=== PATIENT | male | born 1945 | race Caucasian/White ===

== ENCOUNTER 2021-04-14 15:08 | Observation (INO) | payer MEDICARE, OTHER ==
--- OUTSIDE RECORDS SUMMARY | 2021-04-14 15:11 | XMS REPORT | Continuity of Care Document ---
:1945 Author Organization [facility] t Address [address] [place] [address] Dr. Huffman [address] [place] [id number] Care Team Providers Name Role Phone Derrick LOERA Attending Clinician Unavailable Derrick LOERA Admitting Clinician Unavailable Payers Payer Name Policy Type Policy Number Effective Date Expiration Date Jerzy TINAJERO/JUNI [id number] 2019 MEDICARE ADVANTAGE 00:00:00 Problems This patient has no known problems. Allergies, Adverse Reactions, Alerts Allergy Allergy Status Severity Reaction(s) Onset Inactive Treating Comm ents Source Name Type Date Date Clinician NO KNOWN Drug Active [facility] Medications This patient has no known medications. Procedures This patient has no known procedures. Encounters Start End Encounter Admission Attending Care Care Encounter Source Date/Time Date/Time Type Type Clinicians Facility Department ID 2021-01-21 Outpatient R BASILIO LOERA [place] [id number] 3 [facility] 10:34:48 [facility] Results This patient has no known results.
--- NOTE | 2021-04-14 15:36 | RAD REPORT ---
EXAM DESCRIPTION: CT - Ct Stroke Brain Wo Cont - 04/14/2021 3:29 pm CLINICAL HISTORY: r/o stroke Headache, drowsiness, CVA symptomology COMPARISON: No comparisons TECHNIQUE: All CT scans are performed using dose optimization technique as appropriate and may inclu de automated exposure control or mA/KV adjustment according to patient size. FINDINGS: No intracranial hemorrhage, hydrocephalus or extra-axial fluid collection.Moderate general ized brain atrophy is present with moderate periventricular and deep white matter chronic microvascul ar ischemic changes.No areas of brain edema or evidence of midline shift. Chronic right maxillary sinusitis. The calvarium is intact. IMPRESSION: No acute intracranial abnormality. The findings were discussed with Dr Jorge in the ER on 04/14/2021 at 2:28 p.m. by telephone.
[2021-04-14 16:19] LABS: Absolute Lymphocytes (CBC) 1.7 K/uL (0.7-4.9); Hematocrit 38.4 % (39.6-49.0); Lymphocytes % 17.4 % (15.3-44.8); MPV 6.4 fL (7.6-11.3); RBC Red Blood Cell Count 4.04 M/uL (4.33-5.43)
[2021-04-14 16:26] LABS: Protime INR 1.09
[2021-04-14] MEDS ORDERED: NA CHLORIDE 0.9% 2,000 ML ONE (16:29)
[2021-04-14 16:46] LABS: Albumin 2.5 g/dL (3.4-5.0); Bilirubin Direct 0.2 mg/dL (0-0.2); Bilirubin Total 0.5 mg/dL (0.2-1.0); CKMB Creatine Kinase MB 4.7 ng/mL (1.0-3.6); Protein, Total 7.4 g/dL (6.4-8.2); Troponin High Sensitivity 33.3 pg/mL (<58.9)
--- NOTE | 2021-04-14 17:15 | RAD REPORT ---
EXAM DESCRIPTION: RAD - Chest Single View - 04/14/2021 5:10 pm CLINICAL HISTORY: FEVER Chest pain. COMPARISON: No comparisons FINDINGS: Portable technique limits examination quality. Mild interstitial prominence is present, greater on the right. This is most compatible with underlyin g viral infection. The heart is normal in size. No displaced fractures.
[2021-04-14 17:56] LABS: Urine Blood Trace-intact (Negative); Urine Glucose Negative (Negative); Urine Protein 1+ (Negative); Urine Specific Gravity >=1.030 (1.005-1.030)
[2021-04-14] MEDS ORDERED: ACETAMINOPHEN 325 MG TABLET ONE (18:22)
--- NOTE | 2021-04-14 19:02 | ER ---
Nurse's Notes [facility] Name: Abbie Mendoza Age: 75 yrs Sex: Male : 1945 Arrival Date: 04/14/2021 Time: 15:15 Bed 26 Private MD: Diagnosis: Altered mental status, unspecified;Fever, unspecified;Weakness Presentation: 04/14 15:36 Chief complaint: Patient's son or daughter states: adult child: "this morning he was jd3 having problems walking and getting his feet coordinated as well as his general cognition. we had EMS come take a look at him and they said he was fine. he took a nap and now that he is awake he is worse.". Coronavirus screen: fever, Client presents with at least one sign or symptom that may indicate coronavirus-19. Standard/surgical mask placed on the client. Provider contacted for isolation considerations. Ebola Screen: No symptoms or risks identified at this time. Initial Sepsis Screen: Does the patient meet any 2 criteria? Temp <36.0*C (96.8*F)) or > 38.3*C (100.9*F). No. Patient's initial sepsis screen is negative. Does the patient have a suspected source of infection? No. Patient's initial sepsis screen is negative. Risk Assessment: Do you want to hurt yourself or someone else? Patient reports no desire to harm self or others. Onset of symptoms was April 14, 2021. 15:36 Method Of Arrival: Wheelchair j 15:36 Acuity: MADIHA 2 jd3 15:38 Note pt taken to CT for code stroke. pt A\\T\\O X 1. normal A\\T\\O X 4. paolo 3 - Immunization history:: Adult Immunizations unknown. - Social history:: Smoking status: unknown. Screenin:45 Abuse screen: Denies threats or abuse. Denies injuries from another. Nutritional ab2 screening: No deficits noted. Tuberculosis screening: No symptoms or risk factors identified. Fall Risk No fall in past 12 months (0 pts). No secondary diagnosis (0 pts). No IV (0 pts). Ambulatory Aid- None/Bed Rest/Nurse Assist (0 pts). Gait- Impaired (20 pts.). Mental Status- Overestimates/Forgets Limitations (15 pts.). Total Addison Fall Scale indicates Low Risk Score (25-44 pts). Fall prevention measures have been instituted. Side Rails Up X 2 As available Patient and Family Educated on Fall Prevention Program and strategies. Assessment: 15:39 General: Appears in no apparent distress. comfortable, Behavior is calm, cooperative, ab2 appropriate for age. Pain: Denies pain. Neuro: No deficits noted. Level of Consciousness is awake, alert, obeys commands, Oriented to person, Vision Therapist are equal bilaterally Weakness Speech is normal, Facial symmetry appears normal. Cardiovascular: No deficits noted. Denies chest pain, shortness of breath, Heart tones S1 S2 present Patient's skin is warm and dry. Respiratory: No deficits noted. Airway is patent Breath sounds are clear bilaterally. GI: No deficits noted. No signs and/or symptoms were reported involving the gastrointestinal system. Abdomen is flat, non-distended, Bowel sounds present X 4 quads. : No deficits noted. No signs and/or symptoms were reported regarding the genitourinary system. EENT: No deficits noted. No signs and/or symptoms were reported regarding the EENT system. Derm: No deficits noted. No signs and/or symptoms reported regarding the dermatologic system. Musculoskeletal: No deficits noted. No signs and/or symptoms reported regarding the musculoskeletal system. 21:50 Reassessment: Patient appears in no apparent distress at this time. No changes from ab2 previously documented assessment. Pt sleeping in room comfortably. 22:54 Reassessment: pt appears to be sleeping, eyes closed, resp unlabored, report called to lisa Lafleur RN for room 401. Vital Signs: 15:38 BP 140 / 53; Pulse 85; Resp 20 S; Temp 100.3(O); Pulse Ox 97% on R/A; Height 6 ft. 6 jd3 in. (198.12 cm) (R); Pain 0/10; 16:27 Weight 86.18 kg (R); ab2 16:30 BP 131 / 77; Pulse 81; Resp 16; Pulse Ox 98% on R/A; ab2 17:42 BP 116 / 56; Pulse 77; Resp 16; Pulse Ox 98% on R/A; ab2 18:25 BP 121 / 47; Pulse 77; Resp 16; Temp 100(O); Pulse Ox 97% on R/A; Pain 0/10; ab2 18:55 BP 116 / 57; Pulse 80; Resp 15; Pulse Ox 98% on R/A; Pain 0/10; ab2 20:00 BP 104 / 49; Pulse 68; Resp 16; Temp 99.2(O); Pulse Ox 97% ; Pain 0/10; ab2 21:00 BP 121 / 57; Pulse 80; Resp 16; Pulse Ox 97% on R/A; Pain 0/10; ab2 21:48 BP 106 / 54; Pulse 71; Resp 16; Pulse Ox 99% on R/A; Pain 0/10; ab2 16:27 Body Mass Index 21.96 (86.18 kg, 198.12 cm) ab2 NIH Stroke Scale Scores: 15:45 NIHSS Score: 6 ab2 ED Course: 15:15 Patient arrived in ED. iw 15:21 Mendez Jorge MD is Attending Physician. kdr 15:29 CT-STROKE BRAIN W/O CONTRAST CT In Process Unspecified. EDMS 15:37 Triage completed. jd3 15:38 Pete Cota is Primary Nurse. ab2 15:38 Arm band placed on. jd3 16:25 Inserted saline lock: 18 gauge in right antecubital area, using aseptic technique. ab2 Blood collected. 16:26 Amylase, Serum Sent. ab2 16:26 Basic Metabolic Panel Sent. ab2 16:26 Blood Culture Adult (2) Sent. ab2 16:26 CPK Sent. ab2 16:26 Ckmb Sent. ab2 16:26 LFT's Sent. ab2 16:26 Lactate Sent. ab2 16:26 Lipase Sent. ab2 16:26 Procalcitonin Sent. ab2 16:26 Protime (+inr) Sent. ab2 16:26 Ptt, Activated Sent. ab2 16:26 Troponin HS Sent. ab2 17:10 Chest Single View XRAY In Process Unspecified. EDMS 17:44 Patient has correct armband on for positive identification. Bed in low position. Call ab2 light in reach. Side rails up X2. Adult w/ patient. 17:45 No provider procedures requiring assistance completed. ab2 18:57 Nabil Blackmon DO is Hospitalizing Provider. kdr 19:06 CT Chest, Abdomen, Pelvis - W/Contrast In Process Unspecified. EDMS 22:54 Patient admitted, IV remains in place. bb Administered Medications: 16:35 Drug: NS 0.9% (30 ml/kg) 30 ml/kg Route: IV; Rate: bolus; Site: left antecubital; ab2 20:25 Follow up: Response: No adverse reaction; IV Status: Completed infusion ab2 18:25 Drug: Tylenol 650 mg Route: PO; ab2 20:25 Follow up: Response: No adverse reaction ab2 Outcome: 19:01 Decision to Hospitalize by Provider. kdr 22:53 Admitted to Tele accompanied by tech, via stretcher, room 401, with chart, Report bb called to Ciarra MACEDO 22:53 Condition: stable 23:01 Patient left the ED. lisa NIH Stroke Scale - NIH Stroke Score Date: 04/14/2021 Time: 15:45 Total Score = 6 1a. Level of Consciousness (LOC) - 0(Alert) 1b. Level of Consciousness (LOC) (Month \\T\\ Age) - 1(One) 1c. LOC Commands (Open \\T\\ Closes Eyes/Quality Control Representative) - 0(Both) 2. Best Gaze (Lateral Gaze Paresis) - 0(Normal) 3. Visual Field Loss - 0(No visual loss) 4. Facial Palsy - 0(Normal) 5a. Left Arm: Motor (10-second hold) - 0(No drift) 5b. Right Arm: Motor (10-second hold) - 0(No drift) 6a. Left Leg: Motor (5-second hold - always test supine) - 3(No effort against gravity) 6b. Right Leg: Motor (5-second hold - always test supine) - 0(No drift) 7. Limb Ataxia (finger/nose \\T\\ heel/garcia - test with eyes open) - 1(Present in one limb) 8. Sensory Loss (pinprick arms/legs/face) - 0(Normal) 9. Best Language: Aphasia (description/naming/reading) - 1(Mild to moderate aphasia) 10. Dysarthria (speech clarity - read or repeat words) - 0(Normal) 11. Extinction and Inattention (visual/tactile/auditory/spatial/personal) - 0(No abnormality) Initials: ab2 Signatures: Dispatcher [employer] EDMendez Mejía MD MD kdr Ballard, Brenda, RN RN bb Williams, Irene, RN RN iw Davies, Jonathon, RN RN jd3 Bleininger, Pete ab2 Corrections: (The following items were deleted from the chart) 19:50 16:26 UA MICROSCOPIC+U.LAB.ANTHONY drawn and sent. ab2 EDMS
--- NOTE | 2021-04-14 19:02 | EDPHYS ---
Physician Documentation [facility] Name: Abbie Mendoza Age: 75 yrs Sex: Male : 1945 Arrival Date: 04/14/2021 Time: 15:15 Bed 26 Private MD: ED Physician Mendez Jorge HPI: 04/14 18:57 This 75 yrs old Male presents to ER via Wheelchair with complaints of Mental status and kdr fever. 19:03 The patient presents with confusion, decreased mental status, decreased responsiveness, kdr disorientation, to place, to time. Onset: The symptoms/episode began/occurred gradually, 3 day(s) ago. Possible causes: CVA or TIA, sepsis, the patient has had a history of a fever. Associated signs and symptoms: Pertinent positives: confusion, weakness. Current symptoms: In the emergency department the patient's symptoms are unchanged from the initial presentation. Patient's baseline: Neuro: alert and fully oriented, Motor: no deficits, Ambulation: walks with assist only, Speech: normal for age. It is unknown whether or not the patient has had similar symptoms in the past. The patient has not recently seen a physician. - Immunization history:: Adult Immunizations unknown. - Social history:: Smoking status: unknown. ROS: 19:03 Constitutional: Negative for weight loss -has had low-grade fever and chills Eyes: kdr Negative for injury, pain, redness, and discharge, Neck: Negative for injury, pain, and swelling, Cardiovascular: Negative for chest pain, palpitations, and edema, Abdomen/GI: Negative for abdominal pain, nausea, vomiting, diarrhea, and constipation, Back: Negative for injury and pain, : Negative for injury, bleeding, discharge, and swelling, MS/Extremity: Negative for injury and deformity, Skin: Negative for injury, rash, and discoloration, Allergy/Immunology: Negative for hives, rash, and allergies, Endocrine: Negative for neck swelling, polydipsia, polyuria, polyphagia, and marked weight changes, Hematologic/Lymphatic: Negative for swollen nodes, abnormal bleeding, and unusual bruising. 19:03 Respiratory: Positive for cough, with no reported sputum. 19:03 Neuro: Positive for altered mental status, weakness. Exam: 19:03 Constitutional: This is a well developed, well nourished patient who is awake, poorly kdr alert, and in mild distress. Patient has shaking chills and rigors on the ambulance stretcher on arrival Head/Face: Normocephalic, atraumatic. Eyes: Pupils equal round and reactive to light, extra-ocular motions intact. Lids and lashes normal. Conjunctiva and sclera are non-icteric and not injected. Cornea within normal limits. Periorbital areas with no swelling, redness, or edema. Neck: Trachea midline, no thyromegaly or masses palpated, and no cervical lymphadenopathy. Supple, full range of motion without nuchal rigidity, or vertebral point tenderness. No Meningismus. Chest/axilla: Normal chest wall appearance and motion. Nontender with no deformity. No lesions are appreciated. Cardiovascular: Regular rate and rhythm with a normal S1 and S2. No gallops, murmurs, or rubs. Normal PMI, no JVD. No pulse deficits. Respiratory: Lungs have equal breath sounds bilaterally, clear to auscultation and percussion. No rales, rhonchi or wheezes noted. No increased work of breathing, no retractions or nasal flaring. Abdomen/GI: Soft, non-tender, with normal bowel sounds. No distension or tympany. No guarding or rebound. No evidence of tenderness throughout. Back: No spinal tenderness. No costovertebral tenderness. Full range of motion. Skin: Warm, dry with normal turgor. Normal color with no rashes, no lesions, and no evidence of cellulitis. MS/ Extremity: Pulses equal, no cyanosis. Neurovascular intact. Full, normal range of motion. Psych: Awake, alert, with orientation to person, place and time. Behavior, mood, and affect are within normal limits. 19:03 Neuro: Orientation: to person, Not oriented to place, time, situation, Mentation: slow to respond, confused, somnolent, Memory: no acute changes. Vital Signs: 15:38 BP 140 / 53; Pulse 85; Resp 20 S; Temp 100.3(O); Pulse Ox 97% on R/A; Height 6 ft. 6 jd3 in. (198.12 cm) (R); Pain 0/10; 16:27 Weight 86.18 kg (R); ab2 16:30 BP 131 / 77; Pulse 81; Resp 16; Pulse Ox 98% on R/A; ab2 17:42 BP 116 / 56; Pulse 77; Resp 16; Pulse Ox 98% on R/A; ab2 18:25 BP 121 / 47; Pulse 77; Resp 16; Temp 100(O); Pulse Ox 97% on R/A; Pain 0/10; ab2 18:55 BP 116 / 57; Pulse 80; Resp 15; Pulse Ox 98% on R/A; Pain 0/10; ab2 20:00 BP 104 / 49; Pulse 68; Resp 16; Temp 99.2(O); Pulse Ox 97% ; Pain 0/10; ab2 21:00 BP 121 / 57; Pulse 80; Resp 16; Pulse Ox 97% on R/A; Pain 0/10; ab2 21:48 BP 106 / 54; Pulse 71; Resp 16; Pulse Ox 99% on R/A; Pain 0/10; ab2 16:27 Body Mass Index 21.96 (86.18 kg, 198.12 cm) ab2 NIH Stroke Scale Scores: 15:45 NIHSS Score: 6 ab2 MDM: 19:01 Patient medically screened. kdr 19:03 Data reviewed: vital signs, nurses notes, lab test result(s), radiologic studies. kdr Counseling: I had a detailed discussion with the patient and/or guardian regarding: the historical points, exam findings, and any diagnostic results supporting the discharge/admit diagnosis, lab results, radiology results, the need for further work-up and treatment in the hospital. 04/14 15:45 Order name: Amylase, Serum; Complete Time: 18:04 04/14 15:45 Order name: Basic Metabolic Panel; Complete Time: 18:04 04/14 15:45 Order name: Blood Culture Adult (2) 04/14 15:45 Order name: CBC with Diff; Complete Time: 18:04 04/14 15:45 Order name: CPK; Complete Time: 18:04 04/14 15:45 Order name: Ckmb; Complete Time: 18:04 04/14 15:45 Order name: LFT's; Complete Time: 18:04 04/14 15:45 Order name: Lactate; Complete Time: 18:04 04/14 15:45 Order name: Lipase; Complete Time: 18:04 04/14 15:45 Order name: Procalcitonin; Complete Time: 18:04 04/14 15:45 Order name: Protime (+inr); Complete Time: 18:04 04/14 15:45 Order name: Ptt, Activated; Complete Time: 18:04 04/14 15:45 Order name: Troponin HS; Complete Time: 18:04 04/14 15:25 Order name: CT-STROKE BRAIN W/O CONTRAST CT; Complete Time: 18:04 04/14 15:45 Order name: Chest Single View XRAY; Complete Time: 18:04 04/14 17:56 Order name: Urine Dipstick-Ancillary; Complete Time: 18:04 [facility] 04/14 18:31 Order name: CT Chest, Abdomen, Pelvis - W/Contrast; Complete Time: 19:48 [facility] 04/14 18:32 Order name: COVID-19/FLU A+B (Document "Date of Onset" if Symptomatic) [facility] 04/14 18:32 Order name: COVID-19/FLU A+B [facility] 04/14 19:51 Order name: Physical Therapy Consult [facility] 04/14 19:51 Order name: Echo with Doppler [facility] 04/14 19:51 Order name: Urinalysis [facility] 04/14 19:51 Order name: Stroke Protocol [facility] 04/14 19:51 Order name: Carotid Artery Bilateral [facility] 04/14 15:45 Order name: Accucheck; Complete Time: 16:26 04/14 15:45 Order name: Cardiac monitoring; Complete Time: 16:26 04/14 15:45 Order name: EKG - Nurse/Tech; Complete Time: 16:26 04/14 15:45 Order name: IV Saline Lock - Large Bore; Complete Time: 16:25 04/14 15:45 Order name: Labs collected and sent; Complete Time: 16:25 04/14 15:45 Order name: O2 Per Protocol; Complete Time: 16:25 04/14 15:45 Order name: O2 Sat Monitoring; Complete Time: 16:26 04/14 15:45 Order name: Urine Dipstick-Ancillary (obtain specimen); Complete Time: 17:55 04/14 16:14 Order name: Labs - recollect needed: recollect 2nd set of blood cultures.; Complete bd Time: 16:24 04/14 19:51 Order name: Heart Healthy EDMS Administered Medications: 16:35 Drug: NS 0.9% (30 ml/kg) 30 ml/kg Route: IV; Rate: bolus; Site: left antecubital; ab2 20:25 Follow up: Response: No adverse reaction; IV Status: Completed infusion ab2 18:25 Drug: Tylenol 650 mg Route: PO; ab2 20:25 Follow up: Response: No adverse reaction ab2 Disposition Summary: 04/14/21 19:01 Hospitalization Ordered Hospitalization Status: Observation kdr Provider: Nabil Blackmon Location: Telemetry/MedSurg (observation) kdr Condition: Fair kdr Problem: new kdr Symptoms: are unchanged kdr Bed/Room Type: Standard kdr Room Assignment: 401(04/14/21 21:28) eb1 Diagnosis - Altered mental status, unspecified kdr - Fever, unspecified kdr - Weakness kdr Forms: - Medication Reconciliation Form kdr - SBAR form kdr NIH Stroke Scale - NIH Stroke Score Date: 04/14/2021 Time: 15:45 Total Score = 6 1a. Level of Consciousness (LOC) - 0(Alert) 1b. Level of Consciousness (LOC) (Month \\T\\ Age) - 1(One) 1c. LOC Commands (Open \\T\\ Closes Eyes/Uncrater) - 0(Both) 2. Best Gaze (Lateral Gaze Paresis) - 0(Normal) 3. Visual Field Loss - 0(No visual loss) 4. Facial Palsy - 0(Normal) 5a. Left Arm: Motor (10-second hold) - 0(No drift) 5b. Right Arm: Motor (10-second hold) - 0(No drift) 6a. Left Leg: Motor (5-second hold - always test supine) - 3(No effort against gravity) 6b. Right Leg: Motor (5-second hold - always test supine) - 0(No drift) 7. Limb Ataxia (finger/nose \\T\\ heel/garcia - test with eyes open) - 1(Present in one limb) 8. Sensory Loss (pinprick arms/legs/face) - 0(Normal) 9. Best Language: Aphasia (description/naming/reading) - 1(Mild to moderate aphasia) 10. Dysarthria (speech clarity - read or repeat words) - 0(Normal) 11. Extinction and Inattention (visual/tactile/auditory/spatial/personal) - 0(No abnormality) Initials: ab2 Signatures: Dispatcher [employer] EDMS Tanisha Hernandez Kevin, MD MD kdr Williams, Irene, RN RN iw Cristian Galvan, SEPTIC TANK SETTER-C SEPTIC TANK SETTER-Cla1 Manny Mcdaniel RN RN jd3 Lucita Bradley RN RN eb1 Pete Cota ab2 Corrections: (The following items were deleted from the chart) 19:50 15:46 UA MICROSCOPIC+U.LAB.BRZ ordered. EDMS EDMS 19:50 18:32 COVID-19/FLU A+B ordered. EDMS EDMS 19:50 19:37 AMMONIA+C.LAB.BRZ ordered. EDMS EDMS 19:50 19:37 ETHANOL+C.LAB.BRZ ordered. EDMS EDMS 19:51 19:37 URINE DRUG SCREEN+CHEM UR.LAB.BRZ ordered. EDMS EDMS 21:28 19:01 durga eb1
--- NOTE | 2021-04-14 19:20 | RAD REPORT ---
EXAM DESCRIPTION: CT - Chest Abdomen Pelvis W Cont - 04/14/2021 7:06 pm CLINICAL HISTORY: Chest and abdomen pain. Altered mental status COMPARISON: No comparisons TECHNIQUE: Approximately 100 mL nonionic IV contrast was administered to the patient. All CT scans are performed using dose optimization technique as appropriate and may include automated exposure control or mA/KV adjustment according to patient size. FINDINGS: Mild diffuse COPD is present.Poorly defined areas of nodularity are seen in the posterior right upper lobe most likely representing infection.No pleural or pericardial effusion.No intrathorac ic adenopathy. The liver, spleen, pancreas, adrenal glands and kidneys are within normal limits. 13 mm cyst is prese nt medial cortex left kidney. No bowel obstruction, free air, free fluid or abscess. Normal appendix. No pathologic lymphadenopath y in the abdomen or pelvis. There is asymmetric thickening of the rectal wall noted. Mild lumbar degenerative spondylosis. IMPRESSION: Areas of poorly defined nodularity posterior right upper lobe suspicious for infiltrate/ infection. Asymmetric thickening of the rectal wall is noted. Suggest followup nonemergent colonoscopy assessrenata nelson
[2021-04-14] MEDS ORDERED: LORazepam 2 MG/ML VIAL IV PRN (19:49)
[2021-04-14] MEDS ORDERED: ACETAMINOPHEN 500 MG TAB PO PRN (19:49)
[2021-04-14] MEDS ORDERED: ONDANSETRON 4 MG/2 ML VIAL IV PRN (19:49)
--- NOTE | 2021-04-14 19:50 | P.HP ---
Certification for Inpatient Patient admitted to: Inpatient With expected LOS: >2 Midnights Patient will require the following post-hospital care: None Practitioner: I am a practitioner with admitting privileges, knowledge of patient current condition, hospital course, and medical plan of care. Services: Services provided to patient in accordance with Admission requirements found in Title 42 Section 412.3 of the Code of Federal Regulations Patient History Date of Service: 04/14/21 Primary Care Provider: Dr. Emanuel Reason for admission: AMS, pneumonia History of Present Illness: 75-year-old male who reports no significant past medical history aside from tobacco abuse presents emergency department for altered mental status. Patient lives at home with his and stepdaughter who reported that ever since Monday he has had episodes of confusion, appears to not be understanding what they are saying, difficulty walking. Upon arrival to the emergency department patient was only oriented x1, very confused at time of my evaluation patient is oriented x3-4 but still obviously confused to some degree. Patient without any clear neurological deficits at this time moving all extremities with full strength. CT head without contrast negative for any acute findings CT chest abdomen pelvis shows areas of poorly defined nodularity posterior right upper lobe suspicious for infiltration or infection, asymmetrical thickening of the rectal wall noted suggest follow-up nonemergent colonoscopy. Labs were significant for white blood cell count 10.1 hemoglobin 13.2 hematocrit 38.4 sodium 134 amylase 262 procalcitonin 0.09 urine with trace leuk esterase microscopic pending. ED provider wishes to admit for altered mental status. - Past Medical/Surgical History -: COPD -: None Psychosocial/ Personal History: Patient lives at home with his - Family History Brother -: Stroke - Social History Smoking Status: Heavy Tobacco smoker (>10 cigarettes/day) Counseled patient to stop smoking for: less than 10 minutes Smoking therapy provided: Yes Alcohol use: No CD- Drugs: No Caffeine use: Yes Place of Residence: Home Review of Systems 10-point ROS is otherwise unremarkable Neurological: Confusion Physical Examination - Physical Exam General: Alert, In no apparent distress, Oriented x3 HEENT: Atraumatic, PERRLA, Mucous membr. moist/pink, EOMI, Sclerae nonicteric Neck: Supple, 2+ carotid pulse no bruit, No LAD, Without JVD or thyroid abnormality Respiratory: Clear to auscultation bilaterally, Normal air movement Cardiovascular: Regular rate/rhythm, Normal S1 S2 Capillary refill: <2 Seconds Gastrointestinal: Normal bowel sounds, No tenderness Musculoskeletal: No tenderness Integumentary: No rashes Neurological: Normal gait, Normal speech, Normal strength at 5/5 x4 extr, Normal tone, Normal affect, Other (Patient was some difficulty following commands) Lymphatics: No axilla or inguinal lymphadenopathy - Studies Laboratory Data (last 24 hrs) 04/14/21 16:00: PT 12.6 H, INR 1.09, APTT 35.5 04/14/21 16:00: WBC 10.10, Hgb 13.2 L, Hct 38.4 L, Plt Count 404 04/14/21 16:00: Sodium 134 L, Potassium 4.0, BUN 17, Creatinine 1.08, Glucose 86, Total Bilirubin 0.5, AST 49 H, ALT 31, Alkaline Phosphatase 95, Amylase 262 H*, Lipase 93 Assessment and Plan - Plan Assessment: AMSrule out CVA Suspected pneumonia posterior right upper lobe Incidental CT finding asymmetrical thickening of rectal wall Tobacco abuse Plan: AMSrule out CVA: Neurology consulted, MRI stroke protocol, carotid Doppler, echocardiogram ordered. Continue with aspirin, statin, folic acid. Altered mental status potentially related to infectious process with questionable pneumonia. Continue antibiotics Rocephin/Zithromax at this time. Suspected pneumonia posterior right upper lobe: Continue with Rocephin/Zithromax will obtain sputum culture. Pulmonology to be consulted. Patient smokes 3 packs/day risk for lung cancer. Incidental CT finding asymmetrical thickening of rectal wall: We will notify patient/family finding recommend nonemergent outpatient colonoscopy. Tobacco abuse: Counseled on need for tobacco cessation, NicoDerm patch provided. DVT PPX: Full Code status: Lovenox Discharge Plan: Home Plan to discharge in: 48 Hours - Advance Directives Does patient have a Living Will: No Does patient have a Durable POA for Healthcare: No - Code Status/Comfort Care Code Status Assessed: Yes (Full code) Critical Care: No Time Spent Managing Pts Care (In Minutes): 55
[2021-04-14] MEDS ORDERED: ATORVASTATIN 40 MG TAB PO SCH (21:00)
[2021-04-14 21:13] LABS: SARS-COV-2 RT PCR POSITIVE (NEGATIVE)
[2021-04-14 23:44] VITALS: O2SAT 99
--- NOTE | 2021-04-15 06:03 | P.PN ---
Subjective Date of Service: 04/15/21 Primary Care Provider: Dr. Emanuel Chief Complaint: AMS, pneumonia Subjective: Improving, Doing well Physical Examination - Vital Signs Temperature: 98.8 F Blood Pressure: 133/74 Pulse: 64 Respirations: 18 Pulse Ox (%): 95 - Studies Laboratory Data (last 24 hrs) 04/14/21 16:00: PT 12.6 H, INR 1.09, APTT 35.5 04/14/21 16:00: WBC 10.10, Hgb 13.2 L, Hct 38.4 L, Plt Count 404 04/14/21 16:00: Sodium 134 L, Potassium 4.0, BUN 17, Creatinine 1.08, Glucose 86, Total Bilirubin 0.5, AST 49 H, ALT 31, Alkaline Phosphatase 95, Amylase 262 H*, Lipase 93 Assessment & Plan Discharge Plan: Home Physician Review Additional Text: COVID: CT head: COMPARISON: No comparisons TECHNIQUE: All CT scans are performed using dose optimization technique as appropriate and may include automated exposure control or mA/KV adjustment according to patient size. FINDINGS: No intracranial hemorrhage, hydrocephalus or extra-axial fluid collection.Moderate generalized brain atrophy is present with moderate periventricular and deep white matter chronic microvascular ischemic changes.No areas of brain edema or evidence of midline shift. Chronic right maxillary sinusitis. The calvarium is intact. IMPRESSION: No acute intracranial abnormality. CXR: COMPARISON: No comparisons FINDINGS: Portable technique limits examination quality. Mild interstitial prominence is present, greater on the right. This is most compatible with underlying viral infection. The heart is normal in size. No displaced fractures CT chest: COMPARISON: No comparisons TECHNIQUE: Approximately 100 mL nonionic IV contrast was administered to the patient. All CT scans are performed using dose optimization technique as appropriate and may include automated exposure control or mA/KV adjustment according to patient size. FINDINGS: Mild diffuse COPD is present.Poorly defined areas of nodularity are seen in the posterior right upper lobe most likely representing infection.No pleural or pericardial effusion.No intrathoracic adenopathy. The liver, spleen, pancreas, adrenal glands and kidneys are within normal limits. 13 mm cyst is present medial cortex left kidney. No bowel obstruction, free air, free fluid or abscess. Normal appendix. No pathologic lymphadenopathy in the abdomen or pelvis. There is asymmetric thickening of the rectal wall noted. Mild lumbar degenerative spondylosis. IMPRESSION: Areas of poorly defined nodularity posterior right upper lobe suspicious for infiltrate/infection. Asymmetric thickening of the rectal wall is noted. Suggest followup nonemergent colonoscopy assessment. Carotid doppler: COMPARISON: No comparisons TECHNIQUE: Real-time sonographic evaluation of both carotid systems was performed. Doppler interrogation was performed with waveform tracing bilaterally. FINDINGS: Normal high resistance waveforms are noted in both external carotid arteries. The common carotid arteries and internal carotid arteries show normal low resistance waveforms. Mild calcified atherosclerotic plaque at both carotid bulbs. Peak systolic and end diastolic velocity values and the ICA/CCA ratios are in the non- hemodynamically significant range. Antegrade flow seen in both vertebral arteries. IMPRESSION: Mild atherosclerotic changes. No evidence of a hemodynamically significant stenosis. Stroke Protocol MRI: pending Physical Exam: General: Alert, In no apparent distress, oriented x2 HEENT: Atraumatic, PERRLA, Mucous membr. moist/pink, EOMI, Sclerae nonicteric Neck: Supple, 2+ carotid pulse no bruit, No LAD, Without JVD or thyroid abnormality Respiratory: Clear to auscultation bilaterally, Normal air movement Cardiovascular: Regular rate/rhythm, Normal S1 S2 Capillary refill: <2 Seconds Gastrointestinal: Normal bowel sounds, No tenderness Musculoskeletal: No tenderness Integumentary: No rashes Neurological: Normal gait, Normal speech, Normal strength at 5/5 x4 extr, Normal tone, Normal affect, Other (Patient was some difficulty following commands) Lymphatics: No axilla or inguinal lymphadenopathy Impression: Altered mental status suspect related to right upper lobe pneumonia Incidental CT finding asymmetrical thickening of rectal wall Tobacco abuse Plan: Altered mental status suspect related to right upper lobe: Patient appears to be at his baseline. Patient admitted for further evaluation. CT head unremarkable. Await stroke protocol MRI. Continue with treatment of pneumonia. If MRI unremarkable will plan for discharge. Continue aspirin, statin and folic acid. Will discuss with neurology has been consulted. Anticipate discharge later today. Incidental CT finding asymmetrical thickening of rectal wall: Recommend colonoscopy as an outpatient to further address Tobacco abuse: Tobacco cessation education provided. Recommend nicotine patch. DVT PPX: Full Code status: Lovenox Discharge Plan: Home at discharge Time Spent Managing Pts Care (In Minutes): 55
[2021-04-15 06:05] LABS: Absolute Lymphocytes (CBC) 1.9 K/uL (0.7-4.9); Hematocrit 36.7 % (39.6-49.0); Lymphocytes % 21.2 % (15.3-44.8); MPV 6.5 fL (7.6-11.3); RBC Red Blood Cell Count 3.81 M/uL (4.33-5.43)
[2021-04-15 06:28] LABS: Bilirubin Total 0.4 mg/dL (0.2-1.0); Potassium 4.1 mmol/L (3.5-5.1); Protein, Total 6.2 g/dL (6.4-8.2); Thyroid Stimulating Hormone 1.02 uIU/mL (0.360-3.740)
[2021-04-15 07:31] VITALS: BMI 21.4
[2021-04-15] MEDS ORDERED: CEFTRIAXONE 1000 MG/VIAL ONE (08:15)
[2021-04-15] MEDS ORDERED: FOLIC ACID 1 MG TABLET PO SCH (09:00)
[2021-04-15] MEDS ORDERED: ASPIRIN EC 81 MG TAB PO SCH (09:00)
[2021-04-15] MEDS ORDERED: ENOXAPARIN 40 MG/0.4 ML SQ SCH (09:00)
[2021-04-15] MEDS ORDERED: NA CHLORIDE 0.9% 50 ML ONE (09:27)
[2021-04-15] MEDS: CEFTRIAXONE 1,000 MG in NA CHLORIDE 0.9% 50 ML IVPB SCH ×2 (09:27→09:28)
[2021-04-15] MEDS ORDERED: AZITHROMYCIN IV 500 MG in NA CHLORIDE 0.9% 250 ML IVPB SCH (10:00)
--- NOTE | 2021-04-15 10:05 | RAD REPORT ---
EXAM DESCRIPTION: - CP - 04/15/2021 12:53 am CLINICAL HISTORY: AMS, poss. CVA COMPARISON: No comparisons TECHNIQUE: Real-time sonographic evaluation of both carotid systems was performed. Doppler interroga tion was performed with waveform tracing bilaterally. FINDINGS: Normal high resistance waveforms are noted in both external carotid arteries. The common c arotid arteries and internal carotid arteries show normal low resistance waveforms. Mild calcified atherosclerotic plaque at both carotid bulbs. Peak systolic and end diastolic velocity values and the ICA/CCA ratios are in the non-hemodynamically significant range. Antegrade flow seen in both vertebral arteries. IMPRESSION: Mild atherosclerotic changes. No evidence of a hemodynamically significant stenosis.
--- NOTE | 2021-04-15 11:58 | RAD REPORT ---
EXAM DESCRIPTION: MRI - MRA Head Wo Cont - 04/15/2021 11:49 am CLINICAL HISTORY: ams CVA COMPARISON: Chest Abdomen Pelvis W Cont dated 04/14/2021; Ct Stroke Brain Wo Cont dated 04/14/2021 FINDINGS: 3D noncontrast [id number] MR angiography of the [place] was performed. No aneurysm, flow-limiting stenosis or vascular malformation is seen. Forward flow seen in codominant vertebral arteries. The visualized dural venous sinuses appear patent. IMPRESSION: No significant flow abnormality of the [place] is identified.
--- NOTE | 2021-04-15 11:59 | RAD REPORT ---
EXAM DESCRIPTION: MRI - MRA Neck W/Wo Cont - 04/15/2021 11:49 am CLINICAL HISTORY: AMS COMPARISON: No comparisons FINDINGS: Contrast enhance 2D [id number] MR angiography of the neck vessels was performed. No flow limiting stenosis within the neck. No dissection. Essentially codominant vertebral arteries. IMPRESSION: No flow limiting arterial stenosis within the neck.
[2021-04-15 12:29] VITALS: BP 127/58; TEMP 97
--- NOTE | 2021-04-15 12:59 | P.DS ---
Admission Date: 04/14/21 Discharge Date: 04/15/21 Primary Care Provider: Dr. Emanuel Disposition: ROUTINE DISCHARGE Discharge Condition: GOOD Reason for Admission: AMS, pneumonia Consultations: Neurology-Dr. Barreto Procedures: COVID: positive CT head: COMPARISON: No comparisons TECHNIQUE: All CT scans are performed using dose optimization technique as appropriate and may include automated exposure control or mA/KV adjustment according to patient size. FINDINGS: No intracranial hemorrhage, hydrocephalus or extra-axial fluid collection.Moderate generalized brain atrophy is present with moderate periventricular and deep white matter chronic microvascular ischemic changes.No areas of brain edema or evidence of midline shift. Chronic right maxillary sinusitis. The calvarium is intact. IMPRESSION: No acute intracranial abnormality. CXR: COMPARISON: No comparisons FINDINGS: Portable technique limits examination quality. Mild interstitial prominence is present, greater on the right. This is most compatible with underlying viral infection. The heart is normal in size. No displaced fractures CT chest: COMPARISON: No comparisons TECHNIQUE: Approximately 100 mL nonionic IV contrast was administered to the patient. All CT scans are performed using dose optimization technique as appropriate and may include automated exposure control or mA/KV adjustment according to patient size. FINDINGS: Mild diffuse COPD is present.Poorly defined areas of nodularity are seen in the posterior right upper lobe most likely representing infection.No pleural or pericardial effusion.No intrathoracic adenopathy. The liver, spleen, pancreas, adrenal glands and kidneys are within normal limits. 13 mm cyst is present medial cortex left kidney. No bowel obstruction, free air, free fluid or abscess. Normal appendix. No pathologic lymphadenopathy in the abdomen or pelvis. There is asymmetric thickening of the rectal wall noted. Mild lumbar degenerative spondylosis. IMPRESSION: Areas of poorly defined nodularity posterior right upper lobe suspicious for infiltrate/infection. Asymmetric thickening of the rectal wall is noted. Suggest followup nonemergent colonoscopy assessment. Carotid doppler: COMPARISON: No comparisons TECHNIQUE: Real-time sonographic evaluation of both carotid systems was performed. Doppler interrogation was performed with waveform tracing bilaterally. FINDINGS: Normal high resistance waveforms are noted in both external carotid arteries. The common carotid arteries and internal carotid arteries show normal low resistance waveforms. Mild calcified atherosclerotic plaque at both carotid bulbs. Peak systolic and end diastolic velocity values and the ICA/CCA ratios are in the non- hemodynamically significant range. Antegrade flow seen in both vertebral arteries. IMPRESSION: Mild atherosclerotic changes. No evidence of a hemodynamically significant stenosis. MRI Brain: TECHNIQUE: Sagittal T1-weighted images were obtained along with PD/heavily T2- weighted and T2-FLAIR images. Axial DWI and ADC mapping sequences were also obtained along with coronal heavily T2-weighted images were obtained. Contrast was administered. FINDINGS: No intracranial hemorrhage, mass or acute infarction. There is no edema or shift of midline structures. No extra-axial fluid collections. Signal voids are seen as a normal finding in the major intracranial vessels. Cerebral atrophy with chronic small vessel ischemic changes. No abnormal enhancement. Occluded right maxillary sinus. Several opacified ethmoid air cells. Mucous retention cyst left maxillary sinus. IMPRESSION: No acute intracranial abnormality. Mild chronic small vessel ischemic changes. No abnormal enhancement. Paranasal sinus disease. MRA Neck: COMPARISON: No comparisons FINDINGS: Contrast enhance 2D [id number] MR angiography of the neck vessels was performed. No flow limiting stenosis within the neck. No dissection. Essentially codominant vertebral arteries. IMPRESSION: No flow limiting arterial stenosis within the neck. MRA Brain: COMPARISON: Chest Abdomen Pelvis W Cont dated 04/14/2021; Ct Stroke Brain Wo Cont dated 04/14/2021 FINDINGS: 3D noncontrast [id number] MR angiography of the [place] was performed. No aneurysm, flow-limiting stenosis or vascular malformation is seen. Forward flow seen in codominant vertebral arteries. The visualized dural venous sinuses appear patent. IMPRESSION: No significant flow abnormality of the [place] is identified. Medical Problem List: Altered mental status suspect related to right upper lobe pneumonia Incidental CT finding asymmetrical thickening of rectal wall Tobacco abuse Brief History of Present Illness: 75-year-old male who reports no significant past medical history aside from tobacco abuse. Patient presented to the ER with confusion. Patient lives at home with his and stepdaughter who reported that ever since Monday he has had episodes of confusion. In the ER patient was evaluated. Patient without any clear neurological deficits at this time moving all extremities with full strength. CT head unremarkable. Patient was positive for COVID. possible early pneumonia noted. Patient was admitted for further evaluation and treatment. Hospital Course: Patient presented with confusion. CT head unremarkable. MRI stroke protocol unremarkable. Spoke with neurology. No intervention required. Patient was found to be positive for COVID. Patient appears to be asymptomatic. CT chest shows early right upper lobe pneumonia. Patient was started on IV antibiotic therapy. No further intervention required. Patient without significant shortness of breath. At discharge patient will continue with Augmentin 500 mg 1 pill twice daily for 7 days. Patient may continue with thiamine 100 mg daily, folic acid 1 mg daily, and zinc 220 mg daily. Patient may continue with aspirin 81 mg daily. Patient will be provided information on CDC guidelines for COVID including facemask use, handwashing and social distancing. Recommend to recheck chest x- ray in 2 to 4 weeks to follow-up resolution. Recommend follow-up with PCP in 1 week to follow-up his hospitalization. Patient with tobacco abuse. Tobacco cessation addressed in detail. Recommend nicotine patch to help with cessation. CT scan revealed asymmetric thickening of the rectal wall. Recommend colonoscopy as an outpatient to further evaluate. This can be done with the help of his PCP. Vital Signs/Physical Exam: Temp Pulse Resp BP Pulse Ox 97.0 F 89 18 127/58 L 98 04/15/21 12:00 04/15/21 12:00 04/15/21 12:00 04/15/21 12:00 04/15/21 12:00 General: Alert, In no apparent distress, Oriented x3, Cooperative HEENT: Atraumatic Neck: Supple Respiratory: Clear to auscultation bilaterally, Normal air movement Cardiovascular: Normal pulses, Regular rate/rhythm Gastrointestinal: Normal bowel sounds Integumentary: No tenderness/swelling, No erythema, No warmth, No cyanosis Neurological: Normal speech, Normal strength at 5/5 x4 extr, Normal tone, Normal affect Laboratory Data at Discharge: WBC 8.90 K/uL (4.3-10.9) 04/15/21 05:42 Hgb 12.3 g/dL (13.6-17.9) L 04/15/21 05:42 Hct 36.7 % (39.6-49.0) L 04/15/21 05:42 Plt Count 368 K/uL (152-406) 04/15/21 05:42 PT 12.6 SECONDS (9.5-12.5) H 04/14/21 16:00 INR 1.09 04/14/21 16:00 APTT 35.5 SECONDS (24.3-36.9) 04/14/21 16:00 Sodium 136 mmol/L (136-145) 04/15/21 05:42 Potassium 4.1 mmol/L (3.5-5.1) 04/15/21 05:42 BUN 12 mg/dL (7-18) 04/15/21 05:42 Creatinine 0.84 mg/dL (0.55-1.3) 04/15/21 05:42 Glucose 80 mg/dL (74-106) 04/15/21 05:42 Total Bilirubin 0.4 mg/dL (0.2-1.0) 04/15/21 05:42 AST 47 U/L (15-37) H 04/15/21 05:42 ALT 26 U/L (12-78) 04/15/21 05:42 Alkaline Phosphatase 84 U/L (45-117) 04/15/21 05:42 Triglycerides 58 mg/dL (<150) 04/15/21 05:42 Cholesterol 55 mg/dL (<200) 04/15/21 05:42 HDL Cholesterol 29 mg/dL (40-60) L 04/15/21 05:42 Cholesterol/HDL Ratio 1.90 04/15/21 05:42 Amylase 262 U/L (25-115) H* 04/14/21 16:00 Lipase 93 U/L (73-393) 04/14/21 16:00 Home Medications: Amoxicillin/Potassium Clav [Augmentin 500-125 Tablet] 1 each PO BID #14 tablet 04/15/21 Folic Acid 1 mg PO DAILY #30 tablet 04/15/21 Nicotine [Nicoderm*] 21 mg TD DAILY #30 patch.td24 04/15/21 Thiamine HCl 100 mg PO DAILY #30 tablet 04/15/21 Zinc Sulfate [Zinc Sulfate*] 220 mg PO DAILY #30 cap 04/15/21 New Medications: Amoxicillin/Potassium Clav [Augmentin 500-125 Tablet] 1 each PO BID #14 tablet Folic Acid 1 mg PO DAILY #30 tablet Nicotine [Nicoderm*] 21 mg TD DAILY #30 patch.td24 Thiamine HCl 100 mg PO DAILY #30 tablet Zinc Sulfate [Zinc Sulfate*] 220 mg PO DAILY #30 cap Physician Discharge Instructions: Patient presented with confusion. CT head unremarkable. MRI stroke protocol unremarkable. Spoke with neurology. No intervention required. Patient was found to be positive for COVID. Patient appears to be asymptomatic. CT chest shows early right upper lobe pneumonia. Patient was started on IV antibiotic therapy. No further intervention required. Patient without significant shortness of breath. At discharge patient will continue with Augmentin 500 mg 1 pill twice daily for 7 days. Patient may continue with thiamine 100 mg daily, folic acid 1 mg daily, and zinc 220 mg daily. Patient may continue with aspirin 81 mg daily. Patient will be provided information on CDC guidelines for COVID including facemask use, handwashing and social distancing. Recommend to recheck chest x- ray in 2 to 4 weeks to follow-up resolution. Recommend follow-up with PCP in 1 week to follow-up his hospitalization. Patient with tobacco abuse. Tobacco cessation addressed in detail. Recommend nicotine patch to help with cessation. CT scan revealed asymmetric thickening of the rectal wall. Recommend colonoscopy as an outpatient to further evaluate. This can be done with the help of his PCP. Diet: AHA Activity: Ad alberto Followup: Purvi Emanuel DO, DO [Primary Care Provider] - Time spent managing pt's care (in minutes): 55
--- NOTE | 2021-04-15 13:08 | RAD REPORT ---
EXAM DESCRIPTION: MRI - Brain W/Wo Cont - 04/15/2021 11:49 am CLINICAL HISTORY: AMS COMPARISON: MRA Head Wo Cont dated 04/15/2021 TECHNIQUE: Sagittal T1-weighted images were obtained along with PD/heavily T2-weighted and T2-FLAIR images. Axial DWI and ADC mapping sequences were also obtained along with coronal heavily T2-weighted images were obtained. Contrast was administered. FINDINGS: No intracranial hemorrhage, mass or acute infarction. There is no edema or shift of midlin e structures. No extra-axial fluid collections. Signal voids are seen as a normal finding in the [place] r intracranial vessels. Cerebral atrophy with chronic small vessel ischemic changes. No abnormal enha ncement. Occluded right maxillary sinus. Several opacified ethmoid air cells. Mucous retention cyst left maxil charles sinus. IMPRESSION: No acute intracranial abnormality. Mild chronic small vessel ischemic changes. No abnor mal enhancement. Paranasal sinus disease.
--- NOTE | 2021-04-15 19:24 | CON ---
Reason For Consultation: Consultation called because of altered mental status and pneumonia. History Of Present Illness: Mr. Mendoza is a 75-year-old right-handed patient with a long history of heavy cigarette smoking and COPD, who comes in with confusion. Family brought him in. Benjamin castro had difficulty following instructions, realizing where he was and was disoriented to date, time, pl sukhwinder. However, he was brought to [facility] and was evaluated. He was fully oriented, as e hospitalist noted oriented x4. Head CT scan showed no acute ischemic or hemorrhagic change, howeve r, his blood work revealed by PCR was positive for COVID-19. His vital signs did not show a fever. White blood cell count was normal throughout and hemoglobin around 12.3. Chemistries showed no signi ficant abnormalities. Liver function studies showed slightly elevated AST, otherwise, unremarkable. Procalcitonin slightly elevated at 0.09. Cholesterol panel showed LDL of 14, HDL of 29. Urinalysis shows trace blood, trace esterase, 1+ protein. His chest x-ray was compatible with a viral infectio n. He had mediastinal prominence, greater on the right, consistent again with COVID pneumonia. Brai n MRI showed no acute ischemic or hemorrhagic change. He did have mild chronic small-vessel ischemic disease. MRA of the head and neck were unremarkable. Carotid artery ultrasound showed no evidence of hemodynamically significant stenosis. As of my evaluation, patient is also fully oriented to pers on, place, and situation, follows all commands appropriately. He is actually voicing desire to smoke cigarettes. Past Medical History: As noted. Family History: Stroke in brother. Social History: Smokes 1 to 2 packs cigarettes daily and denies current alcohol or IV drug use. Medications: At home, not taking medications regularly now. In hospital, he is on aspirin 81 mg maggy y, Lipitor 40 mg at bedtime. Did receive a gram of Rocephin for urinary tract infection. Folic acid 1 mg daily. Nicoderm patch placed. Review of Systems: Aside from mentioned above, occasional shortness of breath. No other issues in terms of his positivi ty. Review of Systems: As mentioned. Physical Examination: Vital Signs: Blood pressure 137/58, pulse 89, respiratory rate 16, temperature 97.6, O2 saturation 98 %. Weight 185 pounds. Height 66, BMI 21.4. General: Mr. Mendoza is sitting in a chair beside his bed. He is in no acute distress. HEENT: Normocephalic, atraumatic. Sclerae anicteric. Oropharynx pink and moist. Neck: Supple. Chest: Clear. Heart: Regular. Extremities: Showed no edema or cyanosis. Neurologic: Alert, oriented to situation, place, and person. He has no cranial nerve deficits. No focal motor, sensory, coordination, or gait deficits. Assessment: Mr. Mendoza is a 75-year-old patient with COVID-19 pneumonia with symptoms. He is doin g very well and saturations are 98% to 99% on room air, despite the findings of his pneumonia, he has mild symptoms and potentially had urinary tract infection along with chronic obstructive pulmonary d isease. At this point, he will be discharged home and should actually stop smoking cigarettes and mo nitor for any fever or worsening respiratory condition and may be a candidate for either oral or infu ubaldo treatment for COVID-19, although at this point, he is very mildly symptomatic and likely may rec over without long-term pulmonary deficits, although that can't be more certain. Plan, again discharg ed home today. Follow up with Dr. Barreto in clinic in 1 month. If any episodes of confusion retur n, he may get an EEG depending on confusion, otherwise, follow up with primary care physician and pulmon ologist as needed. LB/MODL Voice ID: [id number] Report ID: [id number]
[2021-04-15] MEDS ORDERED: NICOTINE 21 MG/PAT TD SCH (21:00)
--- NOTE | 2021-04-16 07:16 | ECHO ---
HEIGHT: 6 ft 6 in WEIGHT: 185 lb 0 oz DATE OF STUDY: 04/15/[address]: Cristian Galvan NP 2-DIMENSIONAL: YES M.MODE: YES DOPPLER: YES COLOR FLOW: YES TDS: NO PORTABLE: NO DEFINITY: NO BUBBLE STUDY: NO DIAGNOSIS: POSSIBLE CVA CARDIAC HISTORY: CATHERIZATION: NO SURGERY: NO PROSTHETIC VALVE: NO PACEMAKER: NO MEASUREMENTS (cm) DIASTOLIC (NORMALS) SYSTOLIC (NORMALS) IVSd 1.3 (0.6-1.2) LA Diam 3.1 (1.9-4.0) LVEF 55% LVIDd 5.4 (3.5-5.7) LVIDs 3.8 (2.0-3.5) %FS 29% LVPWd 1.2 (0.6-1.2) Ao Diam 2.6 (2.0-3.7) 2 DIMENSIONAL ASSESSMENT: RIGHT ATRIUM: NORMAL LEFT ATRIUM: NORMAL RIGHT VENTRICLE: NORMAL LEFT VENTRICLE: NORMAL TRICUSPID VALVE: NORMAL MITRAL VALVE: NORMAL PULMONIC VALVE: NORMAL AORTIC VALVE: NORMAL PERICARDIAL EFFUSION: NONE AORTIC ROOT: NORMAL LEFT VENTRICULAR WALL MOTION: NORMAL DOPPLER/COLOR FLOW: MILD TRICUSPID REGURGITATION. COMMENTS: LOW NORMAL LEFT VENTRICULAR EJECTION FRACTION 50-55%. MILD TRICUSPID REGURGITATION. TECHNOLOGIST: Jennifer TRUONG
== END 2021-04-15 15:13 | disposition home or self-care (01) ==
LOC: ER 15:08 → INTOOBSV 19:48 → ERHOLD 19:48 → 4TH 22:17
PROVIDERS: ADMIT Family Medicine; ATTEND Family Medicine
DX: J18.9 Pneumonia, unspecified organism (principal); U07.1 COVID-19; R41.82 Altered mental status, unspecified; J44.9 Chronic obstructive pulmonary disease, unspecified; R93.3 Abnormal findings on diagnostic imaging of other parts of digestive tract; F17.210 Nicotine dependence, cigarettes, uncomplicated; Z71.6 Tobacco abuse counseling; Z82.3 Family history of stroke
CPT/HCPCS: 96365; 93005; 93306; 87040 ×2; 85025 ×2; 80048; 36415; 82150; 82550; 85610; 80061; 80076; 83605; 85730; 84443; 81003; 84484; 82553; 84439; 83690; 80053; 84145; 0240U; 71260; 74177; 70450; 71045; 93880; 70553; 70544; 70549; 99285; 96366; Q9967; A9577; J0456; J1650; J7050; J7030; G0378 ×3